=== PATIENT | female | born 1990 | race Caucasian/White ===

== ENCOUNTER 2024-07-08 16:19 | Emergency (ER) | payer OTHER ==
[~2024-07-08] VITALS: Ht 154.9 cm; Wt 61.2 kg
[2024-07-08 16:24] VITALS: PULSE 99; O2SAT 99
[2024-07-08 16:28] VITALS: BP 122/81; RESP 16; TEMP 98.4; O2SAT 100
[2024-07-08 17:25] LABS: BASOPHILS % 0.5 % (0.0-2.0); EOSINOPHILS % 0.9 % (0.0-5.0); HEMATOCRIT. 40.8 % (36.0-48.0); LYMPHOCYTES % 47.3 % (20.0-50.0); MEAN CORPUSCULAR HEMOGLOBIN 30.4 pg (28.0-32.0); MEAN CORPUSCULAR HGB CONC 34.3 g/dL (31.0-37.0); MEAN CORPUSCULAR VOLUME 88.6 fL (81.0-99.0); MEAN PLATELET VOLUME 7.6 fl (7.4-10.4); MONOCYTES % 8.9 % (2.0-8.0); NEUTROPHILS % 42.4 % (40.0-76.0); PLATELET 306 x1000/uL (130-400); RED BLOOD CELL COUNT 4.61 mill/uL (4.2-5.4); RED CELL DISTRIBUTION WIDTH 13.2 % (11.6-14.6); WHITE BLOOD COUNT 5.9 x1000/uL (4.5-11.0)
[2024-07-08 17:30] LABS: CHLORIDE 106 mEq/L (98-107); POTASSIUM 3.5 mEq/L (3.5-5.1); SODIUM 136 mEq/L (136-145)
[2024-07-08 17:31] LABS: CARBON DIOXIDE 23 mEq/L (21-32)
[2024-07-08 17:32] LABS: CALCIUM 9.6 mg/dL (8.7-10.4)
[2024-07-08 17:36] LABS: CREATININE 0.7 mg/dL (0.6-1.0); GLUCOSE 88 mg/dL (70-105)
[2024-07-08 17:37] LABS: B-HCG QUANTITATIVE 706 mIU/mL (<3); UREA NITROGEN BLOOD 8 mg/dL (9-23)
== END 2024-07-08 19:45 | disposition left against medical advice (07) ==
LOC: ER 16:19
DX: R10.31 Right lower quadrant pain (principal); Z53.21 Procedure and treatment not carried out due to patient leaving prior to being seen by health care provider
CPT/HCPCS: 36415; 76830; 76856; 80048; 84702; 85025